=== PATIENT | male | born 1960 | race Caucasian/White ===

== ENCOUNTER 2016-06-21 11:31 | Emergency (ER) ==
[2016-06-21 12:04] LABS: MANUAL DIFF NEEDED? NO
--- NOTE | 2016-06-21 12:04 | ED EKG INTERP ---
EKG Interpretation - EKG Time of EKG reading by physician:: 11:57 EKG Read and Signed by:: Jeremy Munoz Jr EKG Interpretation (*Must complete 3 of following elements*): Normal Rate: 64 Rhythm: nsr [place]: normal QRS: normal DE Interval: normal ST Wave: normal Attestation - Scribe Verification/Attestation Scribe:: Kelley Crawford Acting as Scribe for:: Jeremy Munoz Jr Scribe documention review:: This chart was documented by a scribe and accurately reflects the service the provider performed and the decisions made by the provider.
[2016-06-21 12:06] LABS: BASO% 0.8 % (0.0-0.8); EOS# 0.21 X1000 (0.0-0.7); EOS% 3.3 % (0.0-10.0); HEMATOCRIT 50.4 % (42.0-52.0); HEMOGLOBIN 16.5 g/dL (14.0-18.0); IMM GRAN# 0.01 X1000 (0.0-0.04); IMM GRAN% 0.2 % (0.0-0.5); LYMPH# 2.71 X1000 (1.2-3.4); LYMPH% 42.5 % (20.5-51.1); MCH 30.2 PG (27-31); MCHC 32.7 g/dL (33-37); MCV 92.3 FL (81-99); MONO# 0.63 X1000 (0.11-0.59); MONO% 9.9 % (1.7-9.3); NEUT% 43.3 % (42.2-75.2); PLT 257 X1000 (130-400); RBC 5.46 XMIL (4.7-6.1)
[2016-06-21 12:25] LABS: ACETAMINOPHEN < 1.2 ug/mL (10-30); AGAP 9; ALBUMIN 3.9 g/dL (3.5-5.0); ALKALINE PHOSPHATASE 99 U/L (32-122); BUN 12 mg/dL (8-22); CHLORIDE 106 mmol/L (98-107); COSMO 285; GOT 14 U/L (10-34); GPT 12 U/L (10-44); POTASSIUM 3.4 mmol/L (3.5-5.1); SODIUM 143 mmol/L (136-145); TCO2 28 mmol/L (25-35); TOTAL PROTEIN 6.6 g/dL (6.3-8.3)
--- NOTE | 2016-06-21 12:31 | PROVIDER DOCUMENTATION ---
HPI-General Adult - General Source: patient - History of Present Illness -Gen Adult Nature of Presenting Problems: Pt. is 55 yom that presents with c/o emotional issues. A aids social worker came by the patients home to check on him today and he would not speak any words to anyone so she sent him to the ED for evaluation. The patient at time of exam will not speak and has episodes of crying and smiling. Pt. will not give any further information for evaluation. Location of Pain/Injury: reports: none. denies: head, face, mouth, neck, chest , upper extremity, hand(s), abdomen, back, pelvis, genitalia, lower extremity, feet, upper body, lower body, generalized Pain Radiation: reports: no radiation Quality of Pain: reports: none. denies: aching, burning, cramping, dull, fullness, indigestion, pressure, sharp, stabbing, tearing, throbbing, tightness Severity: denies: mild, moderate, severe Onset/Duration: reports: unsure Timing: reports: still present, constant. denies: improving, gone now, resolved prior to arrival, intermittent, changing over time, getting worse Context/Activities at Onset: reports: none. denies: recent emotional stress, recent physical stress, recent trauma history, possible bad food, out of country travel Modifying Factors: improves with: nothing Associated Symptoms: reports: other (Emotional issues/ pt. will not speak). denies: anxiety, arm pain, back/neck pain, chest pain, constipation, cough, diaphoresis, diarrhea, dizziness, EENT symptoms, fatigue, fever/chills, genitourinary problems, headaches, heartburn, joint pain, loss of appetite, malaise, muscle aches, sinus congestion/drainage, nausea, rash, seizure, shortness of breath, sensory/motor loss, pain with inspiration, swelling/mass in abdomen, syncope, vomiting, weakness, trouble walking Similar Symptoms Previously?: No Recently seen or treated by another doctor?: No <Juan Green - Last Filed: 06/21/16 20:05> <Pedro Perez - Last Filed: 06/22/16 10:32> - General Chief Complaint: Psych Stated Complaint: Psych Time Seen by Provider: 06/21/16 11:43 Allergies/Adverse Reactions: Patient Allergies Allergy/AdvReac Type Severity Reaction Status Date / Time haloperidol lactate * AdvReac Severe EPS Verified 04/14/16 13:48 [From Haldol] Review of Systems - Adult - REVIEW OF SYSTEMS - ADULT Constitutional: reports: see HPI. denies: chills, fever, fatique Eyes: reports: see HPI. denies: discharge, blurred vision, double vision, eye pain Ears, Nose, Mouth & Throat: reports: see HPI. denies: ear discharge, ear pain, hearing loss, nose pain, loose teeth, mouth/dental pain, throat pain, throat swelling Respiratory: reports: see HPI. denies: chronic cough, cough, dyspnea on exertion, pleurisy, shortness of breath, wheezing Gastrointestinal: reports: see HPI. denies: abdominal pain, hematemesis, difficulty swallowing, frequent heartburn, nausea, vomiting Genitourinary: reports: see HPI. denies: dysuria, discharge, frequent UTI's, hematuria, hesitency, incontinence, urgency Musculoskeletal: reports: see HPI. denies: bone pain, back pain, joint pain, joint swelling, muscle aches, neck pain Integumentary: reports: see HPI. denies: hives, itching, rash, skin thickening Neurological: reports: see HPI. denies: ataxia, dizziness/vertigo, headache/ migraines, numbness, paresthesia, seizure, tremors Psychiatric: reports: see HPI, emotional problems (Pt. will not speak.). denies : anxiety, depression, insomnia, panic attacks, suicidal thoughts <Juan Green - Last Filed: 06/21/16 20:05> Past History - Adult - PAST MEDICAL HISTORY-ADULT Review of Records: reports: Old Records Reviewed, Nursing Assessment Review, Medications Reviewed, Social history reviewed & non-contributory. Major Childhood Illnesses: reports: denies history Cardiovascular: reports: HTN, hyperlipidemia Respiratory: reports: denies history Gastrointestinal: reports: GERD Obstetrical/Gynecological: reports: denies history Genitourinary: reports: denies history Musculoskeletal: reports: chronic pain Neurological: reports: denies history Psychiatric: reports: bipolar, depression Endocrine/Immune: reports: denies history Other Conditions: reports: denies history - PRIOR SURGERIES/PROCEDURES Surgical/Procedure History: reports: appendectomy - PRIOR HOSPITALIZATIONS Prior Hospitalizations: reports: for other non-related - IMMUNIZATION STATUS Childhood Immunizations: See Nurse Assessment Flu Vaccine: See Nurse Assessment - FAMILY HISTORY Family History: reviewed, not pertinent <Juan Green - Last Filed: 06/21/16 20:05> Physical Exam-General - PHYSICAL EXAM-ADULT Initial Vital Signs Reviewed: Yes - CONSTITUTIONAL General Appearance: alert, mild distress, slow to respond (Will not respong). negative: obese, anxious, lethargic, obtunded, combative - EYES Eyes: PERRL/EOMI, pink conjunctivae. negative: conjuctival exudate, pale conjunctivae, scleral icterus, subconjunctival hemorrhage - HEAD, EARS, NOSE, MOUTH & THROAT HENMT: normocephalic/atraumatic, moist mucous membranes. negative: angioedema, tonsillar exudate, frontal tenderness, maxillary tenderness - NECK Neck: non-tender, full range of motion, supple, normal inspection. negative: lymphadenopathy, trachial deviation, thyromegaly - RESPIRATORY Respiratory: lungs clear, normal breath sounds. negative: crackles, rales, rhonchi, stridor, wheezing - CARDIOVASCULAR Cardiovascular: normal peripheral pulses, regular rate, rhythm, no edema, no JVD , no murmur. negative: extra beats, friction rub, irregularly irregular - CHEST (BREASTS) Chest/Breast: deferred - GASTROINTESTINAL (ABDOMEN) Abdominal Exam: normal bowel sounds, non tender, soft. negative: distended, guarding, rigid, rebound, tenderness, hernia, mass - GENITOURINARY Male Genitalia: deferred Rectal Exam: deferred Hemoccult Exam: deferred - LYMPHATIC Lymphatic: no adenopathy. negative: axilla node tender, cervical node tenderness - MUSCULOSKELETAL Back Exam: normal inspection, no CVA tenderness, no vertebral tenderness. negative: ecchymosis, muscle spasm, vertebral tenderness Extremity: normal range of motion, non-tender, normal gait, normal inspection. negative: deformity, erythema, inflammation, swelling, tenderness Peripheral Pulses: radial (R): 2+, radial (L): 2+ - SKIN Integumentary: normal color, normal turgor, warm/dry. negative: cyanosis, diaphoresis, ecchymosis, erythema, jaundice, mottled, pallor, petechiae, purpura , rash, swelling, tenderness - NEUROLOGIC Neurologic: grossly normal, no motor/sensory deficits. negative: facial droop, focal weakness, motor weakness, sensory deficit - PSYCHIATRIC Psych/Mental Status: disheveled, depressed affect. negative: normal mood/affect , normal thought content, normal thought process, anxious, tearful <Juan Green - Last Filed: 06/21/16 20:05> Progress - CHANGE OF SHIFT REPORT (ED Provider) Report Given and Care Transferred to:: Dr. Melendez Time of Transfer: 20:05 Items Pending: Other (Evaluation and Placement) <Juan Green - Last Filed: 06/21/16 20:05> - PLAN OF CARE/RESULTS Progress/Plan/Lab Results: Laboratory Results - last 24 hr 06/21/16 06/21/16 06/21/16 11:50 11:55 11:55 WBC RBC Hgb Hct MCV MCH MCHC RDW Std Deviation Plt Count MPV Immature Gran % (Auto) Neut % (Auto) Lymph % (Auto) Drew % (Auto) Eos % (Auto) Baso % (Auto) Immature Gran # (Auto) Neut # (Auto) Lymph # (Auto) Drew # (Auto) Eos # (Auto) Baso # (Auto) Sodium 143 Potassium 3.4 L Chloride 106 Carbon Dioxide 28 Anion Gap 9 BUN 12 Creatinine 0.9 Estimated GFR/1.73 m2 > 60 BUN/Creatinine Ratio 13 Glucose 100 Calculated Osmolality 285 Calcium 9.0 Magnesium 2.0 Total Bilirubin 0.70 AST 14 ALT 12 Alkaline Phosphatase 99 Total Protein 6.6 Albumin 3.9 Globulin 3.0 Albumin/Globulin Ratio 1.0 Vitamin B12 348 Urine Source Urine Color Urine Clarity Urine pH Ur Specific [place] Urine Protein Urine Ketones Urine Blood Urine Nitrite Urine Bilirubin Urine Urobilinogen Urine Microscopic RBC Urine WBC Urine Microscopic WBC Ur Epithelial Cells Urine Bacteria Urine Glucose Salicylates < 3.00 L Urine Opiates Screen Ur Oxycodone Screen Urine Methadone Screen Acetaminophen < 1.2 L Ur Barbituates Screen Ur Tricyclics Screen Ur Phencyclidine Scrn Ur Amphetamines Screen U Methamphetamines Scrn Urine MDMA Screen U Benzodiazepines Scrn Urine Cocaine Screen U Cannabinoids Screen Plasma/Serum Ethyl Alc 06/21/16 06/21/16 06/21/16 11:55 14:05 14:05 WBC 6.38 RBC 5.46 Hgb 16.5 Hct 50.4 MCV 92.3 MCH 30.2 MCHC 32.7 L RDW Std Deviation 12.2 Plt Count 257 MPV 10.0 Immature Gran % (Auto) 0.2 Neut % (Auto) 43.3 Lymph % (Auto) 42.5 Drew % (Auto) 9.9 H Eos % (Auto) 3.3 Baso % (Auto) 0.8 Immature Gran # (Auto) 0.01 Neut # (Auto) 2.77 Lymph # (Auto) 2.71 Drew # (Auto) 0.63 H Eos # (Auto) 0.21 Baso # (Auto) 0.05 Sodium Potassium Chloride Carbon Dioxide Anion Gap BUN Creatinine Estimated GFR/1.73 m2 BUN/Creatinine Ratio Glucose Calculated Osmolality Calcium Magnesium Total Bilirubin AST ALT Alkaline Phosphatase Total Protein Albumin Globulin Albumin/Globulin Ratio Vitamin B12 Urine Source VOIDED Urine Color LURDES Urine Clarity SL. CLOUDY A Urine pH 5.0 Ur Specific [place] 1.020 Urine Protein TRACE A Urine Ketones TRACE Urine Blood NEGATIVE Urine Nitrite NEGATIVE Urine Bilirubin 1+ A Urine Urobilinogen 3+(8 mg/dL) Urine Microscopic RBC <10 Urine WBC TRACE A Urine Microscopic WBC <10 Ur Epithelial Cells <10 Urine Bacteria 1+ Urine Glucose NEGATIVE Salicylates Urine Opiates Screen NONE DETECTED Ur Oxycodone Screen NONE DETECTED Urine Methadone Screen NONE DETECTED Acetaminophen Ur Barbituates Screen NONE DETECTED Ur Tricyclics Screen NONE DETECTED Ur Phencyclidine Scrn NONE DETECTED Ur Amphetamines Screen NONE DETECTED U Methamphetamines Scrn NONE DETECTED Urine MDMA Screen NONE DETECTED U Benzodiazepines Scrn NONE DETECTED Urine Cocaine Screen NONE DETECTED U Cannabinoids Screen NONE DETECTED Plasma/Serum Ethyl Alc Vital Signs Temp Pulse Resp BP Pulse Ox 06/22/16 06:11 98.6 F 70 18 147/96 93 L 06/21/16 20:53 70 18 103/74 96 06/21/16 18:51 105 H 18 106/71 96 06/21/16 11:32 97.8 F 68 16 132/92 98 haloperidol lactate * [From Haldol] Adverse Reaction (Severe, Verified 04/14/16 13:48) EPS Ibuprofen [Motrin] 800 mg PO Q8H PRN PRN #30 tablet 04/09/16 Mupirocin Ointment [Bactroban Ointment] 1 applicatn TOP TID #22 gm 04/09/16 Sulfamethoxazole/Trimethoprim [Bactrim Ds Tablet] 1 each PO BID #20 tablet 04/09 Laboratory 06/21/16 06/21/16 06/21/16 14:05 14:05 11:55 WBC 6.38 RBC 5.46 Hgb 16.5 Hct 50.4 MCV 92.3 MCH 30.2 MCHC 32.7 L RDW Std Deviation 12.2 Plt Count 257 MPV 10.0 Immature Gran % (Auto) 0.2 Neut % (Auto) 43.3 Lymph % (Auto) 42.5 Drew % (Auto) 9.9 H Eos % (Auto) 3.3 Baso % (Auto) 0.8 Immature Gran # (Auto) 0.01 Neut # (Auto) 2.77 Lymph # (Auto) 2.71 Drew # (Auto) 0.63 H Eos # (Auto) 0.21 Baso # (Auto) 0.05 Sodium Potassium Chloride Carbon Dioxide Anion Gap BUN Creatinine Estimated GFR/1.73 m2 BUN/Creatinine Ratio Glucose Calculated Osmolality Calcium Magnesium Total Bilirubin AST ALT Alkaline Phosphatase Total Protein Albumin Globulin Albumin/Globulin Ratio Vitamin B12 Urine Source VOIDED Urine Color [place] Urine Clarity SL. CLOUDY A Urine pH 5.0 Ur Specific [place] 1.020 Urine Protein TRACE A Urine Ketones TRACE Urine Blood NEGATIVE Urine Nitrite NEGATIVE Urine Bilirubin 1+ A Urine Urobilinogen 3+(8 mg/dL) Urine Microscopic RBC <10 Urine WBC TRACE A Urine Microscopic WBC <10 Ur Epithelial Cells <10 Urine Bacteria 1+ Urine Glucose NEGATIVE Salicylates Urine Opiates Screen NONE DETECTED Ur Oxycodone Screen NONE DETECTED Urine Methadone Screen NONE DETECTED Acetaminophen Ur Barbituates Screen NONE DETECTED Ur Tricyclics Screen NONE DETECTED Ur Phencyclidine Scrn NONE DETECTED Ur Amphetamines Screen NONE DETECTED U Methamphetamines Scrn NONE DETECTED Urine MDMA Screen NONE DETECTED U Benzodiazepines Scrn NONE DETECTED Urine Cocaine Screen NONE DETECTED U Cannabinoids Screen NONE DETECTED Plasma/Serum Ethyl Alc 06/21/16 06/21/16 06/21/16 11:55 11:55 11:50 WBC RBC Hgb Hct MCV MCH MCHC RDW Std Deviation Plt Count MPV Immature Gran % (Auto) Neut % (Auto) Lymph % (Auto) Drew % (Auto) Eos % (Auto) Baso % (Auto) Immature Gran # (Auto) Neut # (Auto) Lymph # (Auto) Drew # (Auto) Eos # (Auto) Baso # (Auto) Sodium 143 Potassium 3.4 L Chloride 106 Carbon Dioxide 28 Anion Gap 9 BUN 12 Creatinine 0.9 Estimated GFR/1.73 m2 > 60 BUN/Creatinine Ratio 13 Glucose 100 Calculated Osmolality 285 Calcium 9.0 Magnesium 2.0 Total Bilirubin 0.70 AST 14 ALT 12 Alkaline Phosphatase 99 Total Protein 6.6 Albumin 3.9 Globulin 3.0 Albumin/Globulin Ratio 1.0 Vitamin B12 348 Urine Source Urine Color Urine Clarity Urine pH Ur Specific [place] Urine Protein Urine Ketones Urine Blood Urine Nitrite Urine Bilirubin Urine Urobilinogen Urine Microscopic RBC Urine WBC Urine Microscopic WBC Ur Epithelial Cells Urine Bacteria Urine Glucose Salicylates < 3.00 L Urine Opiates Screen Ur Oxycodone Screen Urine Methadone Screen Acetaminophen < 1.2 L Ur Barbituates Screen Ur Tricyclics Screen Ur Phencyclidine Scrn Ur Amphetamines Screen U Methamphetamines Scrn Urine MDMA Screen U Benzodiazepines Scrn Urine Cocaine Screen U Cannabinoids Screen Plasma/Serum Ethyl Alc Orders Category Date Time Status ACETAMINOPHEN [TDM] Stat Lab 06/21/16 11:55 Completed ALCOHOL BLOOD Stat Lab 06/21/16 11:55 Completed CBC WITH DIFF [HEME] Stat Lab 06/21/16 11:55 Completed COMPREHENSIVE METABOLIC PANEL [CHEM] Stat Lab 06/21/16 11:55 Completed MAGNESIUM [CHEM] Stat Lab 06/21/16 11:55 Completed SALICYLATES [TDM] Stat Lab 06/21/16 11:[address] W/POSS RFLX CULT [URINALYSIS] Stat Lab 06/21/16 14:05 Completed URINE CULTURE [RM] Routine Lab 06/21/16 15:18 Results URINE DRUG SCREEN PL Stat Lab 06/21/16 14:05 Completed VITAMIN B12 Stat Lab 06/21/16 11:50 Completed Lorazepam [Ativan] Med 06/21/16 13:08 Discontinued 2 mg IM NOW ONE Water, Sterile Inj [Sterile Water Inj] Med 06/21/16 13:09 Discontinued 1.2 ml INJ NOW ONE Water, Sterile Inj [Sterile Water Inj] Med 06/22/16 00:27 Discontinued 1.2 ml INJ NOW ONE Ziprasidone [Geodon] Med 06/21/16 13:09 Discontinued 20 mg IM NOW ONE Ziprasidone [Geodon] Med 06/22/16 00:27 Discontinued 20 mg IM NOW ONE EKG [EKG] Stat Ther 06/21/16 11:42 Draft - REASSESSMENT Reassessment #1 Time Reassessed: 10:31 Status: improving (Transfer to [facility]) <Pedro Perez - Last Filed: 06/22/16 10:32> Departure <Juan Green - Last Filed: 06/21/16 20:05> - Departure Time of Disposition Order: 10:31 Certified Medical Emergency: Emergent <Pedro Perez - Last Filed: 06/22/16 10:32> - Departure DIAGNOSIS: Suicidal ideation Psychosis Qualifiers: Psychosis type: unspecified psychosis type Qualified Code(s): F29 - Unspecified psychosis not due to a substance or known physiological condition Disposition: [facility] Condition: Stable Physician Attestation
--- NOTE | 2016-06-21 12:39 | EKG Report ---
Test Performed on : 06/21/2016 11:57:52 AM Test Reason : PSYCH Blood Pressure : / mmHG Vent. Rate : 064 BPM Atrial Rate : 064 BPM P-R Int : 138 ms QRS Dur : 082 ms QT Int : 400 ms P-R-T Axes : 060 060 071 degrees QTc Int : 412 ms Normal sinus rhythm. Normal ECG When compared with ECG of 01-DEC-2015 21:27, No significant change was found Unconfirmed Result
[2016-06-21] MEDS ORDERED: ATIVAN IM ONE (13:08)
[2016-06-21] MEDS ORDERED: GEODON IM ONE (13:09)
[2016-06-21] MEDS ORDERED: STERILE WATER INJ. INJ ONE (13:09)
[2016-06-21 14:15] LABS: URINE SOURCE VOIDED
[2016-06-21 14:20] LABS: UR AMPHETAMINES QUAL NONE DETECTED (NONE DETECT); UR BARBITUATES QUAL NONE DETECTED (NONE DETECT); UR BENZODIAZEPIN QUAL NONE DETECTED (NONE DETECT); UR CANNABINOIDS QUAL NONE DETECTED (NONE DETECT); UR COCAINE QUAL NONE DETECTED (NONE DETECT); UR MDMA QUAL NONE DETECTED (NONE DETECT); UR METHADONE QUAL NONE DETECTED (NONE DETECT); UR METHAMPHETAMINE QUAL NONE DETECTED (NONE DETECT); UR OPIATES QUAL NONE DETECTED (NONE DETECT); UR OXYCODONE QUAL NONE DETECTED (NONE DETECT); UR PCP QUAL NONE DETECTED (NONE DETECT); UR TCA QUAL NONE DETECTED (NONE DETECT)
[2016-06-21 14:24] LABS: BILIRUBIN URINE 1+ (NEGATIVE); BLOOD URINE NEGATIVE (NEGATIVE); CLARITY SL. CLOUDY (CLEAR); COLOR AMBER; GLUCOSE URINE NEGATIVE (NEGATIVE); LEUKOCYTES URINE TRACE (NEGATIVE); NITRITE URINE NEGATIVE (NEGATIVE); PROTEIN URINE TRACE mg/dL (NEGATIVE)
[2016-06-21 14:36] LABS: URINE CULTURE PL NEEDED? YES; URINE EPITHELIAL CELLS <10 /HPF (<10); URINE RBC <10 /HPF (<10); URINE WBC <10 /HPF (<10)
[2016-06-21 14:41] LABS: UROBILINOGEN URINE 3+(8 mg/dL)
[2016-06-22] MEDS ORDERED: STERILE WATER INJ. INJ ONE (00:27)
[2016-06-22] MEDS ORDERED: GEODON IM ONE (00:27)
[2016-06-22 06:11] VITALS: BP 147/96
== END 2016-06-22 10:52 ==
LOC: P.ED 11:31
DX: F29 Unspecified psychosis not due to a substance or known physiological condition (principal); R45.851 Suicidal ideations; I10 Essential (primary) hypertension; E78.5 Hyperlipidemia, unspecified; G89.29 Other chronic pain; F31.9 Bipolar disorder, unspecified; F32.9 Major depressive disorder, single episode, unspecified; Z79.899 Other long term (current) drug therapy
CPT/HCPCS: 36415; 80053; 81001; 82607; 83735; 85025; 87088; 93005; 96372; G0477; G0480; J2060; J3486